=== PATIENT | female | born 1990 | race Asian ===

== ENCOUNTER 2019-11-12 20:04 | Emergency (ER) | payer OTHER ==
[2019-11-12] MEDS ORDERED: Diltiazem 25 MG/5 ML SDV IVPUSH ONE (20:06)
[2019-11-12] MEDS ORDERED: Labetalol 20 MG/4 ML Syringe IVPUSH ONE (20:29)
[2019-11-12 20:43] LABS: PTT,PARTIAL THROMBOPLSTIN TIME 24.1 SEC (22.0-34.0)
[2019-11-12] MEDS ORDERED: niCARdipine HCl 25 MG in Sodium Chloride 0.9% 240 ML IV SCH (20:45)
[2019-11-12 20:46] LABS: ANION GAP 12.3 mEq/L (7-13); CHLORIDE,CL 103 mmol/L (98-107); SODIUM,NA 138 mmol/L (136-145)
--- NOTE | 2019-11-12 20:49 | EDM.PDOC ---
ED HPI GENERAL MEDICAL PROBLEM - General Chief Complaint: Neuro Symptoms/Deficits Stated Complaint: STROKE Time Seen by Provider: 11/12/19 20:43 Source of Information: Reports: Other History Limitations: Reports: Language Barrier - History of Present Illness INITIAL COMMENTS - FREE TEXT/NARRATIVE: pt presented with right facial droop and severly hypertensive. spouse states they were fishing and suddenly pt started having problem speaking and right face not moving. so they came here immediately. denies trauma and take BP Rx and not been sick. Social & Family History - Tobacco Use Smoking Status *Q: Never Smoker Second Hand Smoke Exposure: No - Recreational Drug Use Recreational Drug Use: No ED ROS GENERAL - Review of Systems Review Of Systems: Comprehensive ROS is negative, except as noted in HPI. ED EXAM, NEURO - Physical Exam Exam: See Below Exam Limited By: No Limitations General Appearance: Alert, WD/WN, No Apparent Distress Eye Exam: Bilateral Eye: PERRL (pupils ER @ 4mm) Ears: Hearing Grossly Normal Throat/Mouth: Normal Voice, No Airway Compromise Head Exam: Atraumatic Neck: Non-Tender, Full Range of Motion Respiratory/Chest: Rales, Rhonchi Cardiovascular: Regular Rate, Rhythm GI/Abdominal: Soft, Non-Tender Neurological: Alert, Other (right facial droop, dysarthric) Extremities: Normal Inspection, Normal Range of Motion Psychiatric: Normal Affect, Normal Mood Skin Exam: Warm, Dry, Normal Color Course - Vital Signs Last Recorded V/S: Last Vital Signs Temp 37.2 C 11/12/19 20:12 Pulse 103 H 11/12/19 20:12 Resp 30 H 11/12/19 20:12 BP 266/146 H 11/12/19 20:12 Pulse Ox 91 L 11/12/19 20:12 - Orders/Labs/Meds Orders: Active Orders 24 hr Category Date Time Status EKG 12 Lead [EKG Documentation Completion] [RC] STAT Care 11/12/19 20:19 Active Chest 1V Frontal [CR] Urgent Exams 11/12/19 20:08 Taken Head wo Cont [CT] Urgent Exams 11/12/19 20:07 Taken UA W/MICROSCOPIC [URIN] Stat Lab 11/12/19 21:00 Results niCARdipine HCl [Nicardipine HCl] 25 mg Med 11/12/19 20:45 Active Sodium Chloride 0.9% [Normal Saline] 240 ml IV TITRATE Medication Orders Nicardipine HCl 25 mg/ Sodium (Chloride) 250 mls @ 50 mls/hr IV TITRATE PUJA; Protocol Last Titration: 11/12/19 21:07 Dose: 3 mg/hr, 30 mls/hr Titration: 11/12/19 21:06 Dose: 7.5 mg/hr, 75 mls/hr Admin: 11/12/19 20:46 Dose: 2.5 mg/hr, 25 mls/hr Labs: Laboratory Tests 11/12/19 11/12/19 11/12/19 Range/Units 20:10 20:10 20:10 WBC 13.9 H (5.0-10.0) 10^3/uL RBC 5.74 H (4.2-5.4) 10^6/uL Hgb 13.5 (12.0-16.0) g/dL Hct 42.2 (37.0-47.0) % MCV 73.5 L (80-100) fL MCH 23.5 L (27.0-34.0) pg MCHC 32.0 L (33.0-35.0) g/dL Plt Count 269 (150-450) 10^3/uL Neut % (Auto) 70.3 (42.2-75.2) % Lymph % (Auto) 17.8 L (20.5-50.1) % [place] % (Auto) 6.8 (2-8) % Eos % (Auto) 4.7 H (1.0-3.0) % Baso % (Auto) 0.4 (0.0-1.0) % PT 9.4 (9.0-12.0) SEC INR 1.0 (0.9-1.2) APTT 24.1 (22.0-34.0) SEC Sodium 138 (136-145) mmol/L Potassium 3.3 L (3.5-5.1) mmol/L Chloride 103 (98-107) mmol/L Carbon Dioxide 26 (21-32) mmol/L Anion Gap 12.3 (7-13) mEq/L BUN 35 H (7-18) mg/dL Creatinine 2.08 H (0.55-1.02) mg/dL Est Cr Clr Drug Dosing TNP Estimated GFR (MDRD) 28 BUN/Creatinine Ratio 16.8 (No establ ref range) Glucose 103 H (74-99) mg/dL Calcium 8.4 L (8.5-10.1) mg/dL Total Bilirubin 0.5 (0.2-1.0) mg/dL AST 16 (15-37) U/L ALT 18 (14-59) U/L Alkaline Phosphatase 95 (46-116) U/L Troponin I 0.290 H* (0.000-0.056) ng/mL Total Protein 7.4 (6.4-8.2) g/dL Albumin 3.3 L (3.4-5.0) g/dL Globulin 4.1 Albumin/Globulin Ratio 0.80 Urine Color (YELLOW) Urine Appearance (CLEAR) Urine pH (5.0-9.0) Ur Specific [place] (1.005-1.030) Urine Protein (NEGATIVE) Urine Glucose (UA) (NEGATIVE) Urine Ketones (NEGATIVE) Urine Occult Blood (NEGATIVE) Urine Nitrite (NEGATIVE) Urine Bilirubin (NEGATIVE) Urine Urobilinogen (0.2-1.0) mg/dL Ur Leukocyte Esterase (NEGATIVE) Urine HCG, Qual 11/12/19 11/12/19 Range/Units 21:00 21:00 WBC (5.0-10.0) 10^3/uL RBC (4.2-5.4) 10^6/uL Hgb (12.0-16.0) g/dL Hct (37.0-47.0) % MCV (80-100) fL MCH (27.0-34.0) pg MCHC (33.0-35.0) g/dL Plt Count (150-450) 10^3/uL Neut % (Auto) (42.2-75.2) % Lymph % (Auto) (20.5-50.1) % [place] % (Auto) (2-8) % Eos % (Auto) (1.0-3.0) % Baso % (Auto) (0.0-1.0) % PT (9.0-12.0) SEC INR (0.9-1.2) APTT (22.0-34.0) SEC Sodium (136-145) mmol/L Potassium (3.5-5.1) mmol/L Chloride (98-107) mmol/L Carbon Dioxide (21-32) mmol/L Anion Gap (7-13) mEq/L BUN (7-18) mg/dL Creatinine (0.55-1.02) mg/dL Est Cr Clr Drug Dosing Estimated GFR (MDRD) BUN/Creatinine Ratio (No establ ref range) Glucose (74-99) mg/dL Calcium (8.5-10.1) mg/dL Total Bilirubin (0.2-1.0) mg/dL AST (15-37) U/L ALT (14-59) U/L Alkaline Phosphatase (46-116) U/L Troponin I (0.000-0.056) ng/mL Total Protein (6.4-8.2) g/dL Albumin (3.4-5.0) g/dL Globulin Albumin/Globulin Ratio Urine Color Light yellow (YELLOW) Urine Appearance Slightly cloudy (CLEAR) Urine pH 6.5 (5.0-9.0) Ur Specific [place] 1.020 (1.005-1.030) Urine Protein 100 H (NEGATIVE) Urine Glucose (UA) Negative (NEGATIVE) Urine Ketones Negative (NEGATIVE) Urine Occult Blood Trace-intact H (NEGATIVE) Urine Nitrite Negative (NEGATIVE) Urine Bilirubin Negative (NEGATIVE) Urine Urobilinogen 0.2 (0.2-1.0) mg/dL Ur Leukocyte Esterase Negative (NEGATIVE) Urine HCG, Qual Negative Meds: Medications Generic Name Dose Route Start Last Admin Trade Name Freq PRN Reason Stop Dose Admin Nicardipine HCl 25 mg/ Sodium 250 mls @ 50 mls/hr 11/12/19 20:45 11/12/19 21: 07 Chloride IV 3 mg/hr TITRATE PUJA 30 mls/hr Titration Protocol 5 MG/HR Discontinued Medications Generic Name Dose Route Start Last Admin Trade Name Freq PRN Reason Stop Dose Admin Diltiazem HCl 20 mg 11/12/19 20:06 11/12/19 20:13 Diltiazem IVPUSH 11/12/19 20:07 20 mg ONETIME ONE Administration Potassium Chloride 10 meq/ 100 mls @ 100 mls/hr 11/12/19 20:54 11/12/19 20:58 Premix IV 11/12/19 21:53 100 mls/hr ONETIME ONE Administration Labetalol HCl 10 mg 11/12/19 20:29 05/24/20 20:32 Normodyne IVPUSH 11/12/19 20:30 10 mg ONETIME ONE Administration - Re-Assessments/Exams Free Text/Narrative Re-Assessment/Exam: 11/12/19 20:[address] Salda[facility] in [place] who kindly accepted pt. Dr Bryan ER concurred. Departure - Departure Time of Disposition: 20:56 Disposition: DC/Tfer to Acute Hospital 02 Condition: Good Clinical Impression: Left-sided cerebrovascular accident (CVA), Intracranial hemorrhage, Elevated troponin, Renal insufficiency Hypertension Qualifiers: Hypertension type: unspecified Qualified Code(s): I10 - Essential (primary) hypertension - Discharge Information Forms: Interfacility Transfer EMTALA Sepsis Event Note - Evaluation Sepsis Screening Result: No Definite Risk - Focused Exam Vital Signs: Vital Signs Temp Pulse Resp BP Pulse Ox 11/12/19 20:12 37.2 C 103 H 30 H 266/146 H 91 L Date Exam was Performed: 11/12/19 Time Exam was Performed: 21:55 - My Orders Last 24 Hours: My Active Orders 11/12/19 20:07 Head wo Cont [CT] Urgent 11/12/19 20:08 Chest 1V Frontal [CR] Urgent 11/12/19 20:19 EKG 12 Lead [EKG Documentation Completion] [RC] STAT 11/12/19 20:45 niCARdipine HCl [Nicardipine HCl] 25 mg Sodium Chloride 0.9% [Normal Saline] 240 ml IV TITRATE 11/12/19 21:00 UA W/MICROSCOPIC [URIN] Stat - Assessment/Plan Last 24 Hours: My Active Orders 11/12/19 20:07 Head wo Cont [CT] Urgent 11/12/19 20:08 Chest 1V Frontal [CR] Urgent 11/12/19 20:19 EKG 12 Lead [EKG Documentation Completion] [RC] STAT 11/12/19 20:45 niCARdipine HCl [Nicardipine HCl] 25 mg Sodium Chloride 0.9% [Normal Saline] 240 ml IV TITRATE 11/12/19 21:00 UA W/MICROSCOPIC [URIN] Stat
[2019-11-12] MEDS ORDERED: Potassium Chloride 10 MEQ in Premix Bag 1 BAG IV ONE (20:54)
== END 2019-11-12 21:24 ==
LOC: DL.ED 20:04
DX: I62.9 Nontraumatic intracranial hemorrhage, unspecified (principal); R29.810 Facial weakness; R47.1 Dysarthria and anarthria; R79.89 Other specified abnormal findings of blood chemistry; N28.9 Disorder of kidney and ureter, unspecified; I10 Essential (primary) hypertension
CPT/HCPCS: 36415; 51702; 70450; 71045; 80053; 81001; 81025; 84484; 85025; 85610; 85730; 93005; 96365; 96368; 96375; 99285; J3480; J3490; J7050